=== PATIENT | male | born 1975 | race Caucasian/White ===

== ENCOUNTER 2021-01-08 14:25 | Emergency (ER) | payer BC ==
[~2021-01-08] VITALS: Ht 180.3 cm; Wt 94.8 kg
[2021-01-08 14:25] VITALS: BP_SYST 142
--- NOTE | 2021-01-08 14:25 | NUR ---
BROUGHT BACK TO BED #3 AND TRIAGED. REPORT GIVEN TO ORTIZ
--- NOTE | 2021-01-08 14:30 | NUR ---
Pt came to ER with double vision stating he was sent by a Nurse Practitioner at work to rule out stroke. Pt resting in [facility], no other complaints. 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
--- NOTE | 2021-01-08 14:40 | NUR ---
ER at bedside examining patient.
--- NOTE | 2021-01-08 15:21 | NUR ---
Patient given written and verbal discharge instructions and verbalizes understanding. ER MD discussed with patient the results and treatment provided. Patient in stable condition. ID arm band removed. No Rx given. Patient educated on pain management and to follow up with PMD. Pain Scale 0/10. Opportunity for questions provided and answered. Medication side effect fact sheet provided.
== END 2021-01-08 15:21 | disposition home or self-care (01) ==
LOC: SED 14:25
DX: R51.9 Headache, unspecified (principal); Z88.6 Allergy status to analgesic agent
CPT/HCPCS: 99281